=== PATIENT | male | born 1975 | race African-American/Black ===

== ENCOUNTER 2019-01-12 01:44 | Emergency (ER) | payer SELFPAY ==
[~2019-01-12] VITALS: Ht 172.7 cm; Wt 72.6 kg
[2019-01-12 02:01] VITALS: BP 103/76
[2019-01-12 03:12] LABS: Basophils # (auto) 0.1 uL; Basophils % (auto) 0.7 % (0.0-2.0); Eosinophils # (auto) 0.1 uL; Eosinophils % (auto) 1.3 % (0.0-7.0); Hemoglobin 14.9 g/dL (13.5-17.5); Lymphocytes # (auto) 3.9 uL; Lymphocytes % (auto) 47.2 % (10.0-50.0); Mean Corpuscular Hemoglobin 32.9 pg (28.0-32.0); Mean Corpuscular Volume 96.8 fL (80.0-100.0); Monocytes # (auto) 0.8 uL; Monocytes % (auto) 9.8 % (0.0-12.0); Neutrophils # (auto) 3.4 uL; Nucleated Red Blood Cells % 0.1 %; Platelet Count (auto) 292 10^3/uL (140-450); Red Blood Cells 4.54 10^6/uL (4.5-5.90); Red Cell Distribution Width 13.4 % (11.8-14.3); White Blood Cell 8.2 10^3/uL (4.4-10.8)
[2019-01-12 03:30] LABS: Albumin 3.8 g/dL (3.4-5.0); Calcium 8.5 mg/dL (8.5-10.1); Magnesium 2.4 mg/dL (1.6-2.6); Potassium 3.8 mmol/L (3.5-5.1)
[2019-01-12 03:33] LABS: BUN/Creatinine Ratio 5.6
[2019-01-12 03:35] LABS: Bilirubin, Total 0.7 mg/dL (0.2-1.0); Salicylate 2.4 mg/dL (2.8-20.0); Total Protein 7.9 g/dL (6.4-8.2)
[2019-01-12 03:37] LABS: Acetaminophen < 2.0 ug/mL (10-30)
[2019-01-12] MEDS ORDERED: MULTIPLE VITAMIN 10 ML, MAGNESIUM SULF SDV 50% 8 MEQ in SODIUM CHLORIDE 0.9% 1,000 ML IV SCH (12:00)
== END 2019-01-12 06:20 | disposition home or self-care (01) ==
LOC: ER 01:44 → EDBD 01:44 → ER 06:20
DX: G92 Toxic encephalopathy (principal); F10.920 Alcohol use, unspecified with intoxication, uncomplicated; F17.210 Nicotine dependence, cigarettes, uncomplicated; Y90.0 Blood alcohol level of less than 20 mg/100 ml; Z59.0 Homelessness
CPT/HCPCS: 36415; 80053; 80320; 80329; 83735; 85025; 94761

== ENCOUNTER 2019-01-16 20:00 | Emergency (ER) | payer SELFPAY ==
[~2019-01-16] VITALS: Ht 170.2 cm; Wt 72.6 kg
[2019-01-16 20:10] VITALS: BP 118/72
== END 2019-01-17 00:37 | disposition left against medical advice (07) ==
LOC: ER 20:06
DX: R07.89 Other chest pain (principal); Z53.21 Procedure and treatment not carried out due to patient leaving prior to being seen by health care provider
CPT/HCPCS: 71045